=== PATIENT | male | born 1965 | race African-American/Black ===

== ENCOUNTER 2016-09-01 15:00 | Emergency (ER) | payer MEDICAID ==
[~2016-09-01] VITALS: Ht 170.2 cm; Wt 85.3 kg
[~2016-09-01 15:00] MED LIST: AMOXICILLIN500 MG ORAL; NKM
[2016-09-01 15:39] VITALS: BP 120/71
[2016-09-01] MEDS ORDERED: AUGMENTIN 875-1 EAC1 ORAL (15:41)
[2016-09-01] MEDS ORDERED: TdaP Vaccine 0.5ml Syr IM ONE (15:45)
[2016-09-01 15:47] VITALS: BP 120/71
--- NOTE | 2016-09-01 15:49 | Emergency Room Report ---
History of Present Illness General Chief Complaint: Animal Bite Source: Patient Present Illness HPI Patient complains of dog bite to his left hand 2 days ago. States that he was bit by a small domistcated dog that bit his left middle finger. States dog is up -to-date with rabies. States that the area is not red swollen or tender to touch. Pain provoked with palpation and with movement and relieved with rest and ice.Current pain is 3/10. Patient denies any numbness, tingling, pressure, paralysis, cyanosis, bruising, loss of sensation, or loss of range of motion. Allergies: Coded Allergies: No Known Allergies (Unverified , 12/09/15) Patient History Past Medical History: see triage record Pertinent Family History: none Immunizations: other - needs TDAP Reviewed Nursing Documentation: PMH: Agreed, PSxH: Agreed Nursing Documentation-PMH Past Medical History: No Stated History Physical Exam Vital Signs Date Time Temp Pulse Resp B/P Pulse Ox O2 Delivery O2 Flow Rate FiO2 09/01/16 15:33 97.7 74 14 120/71 100 Room Air Sp02 EP Interpretation: reviewed, normal General Appearance: no apparent distress, alert, GCS 15, non-toxic Head: normocephalic, atraumatic ENT: normal ENT inspection Neck: normal inspection Respiratory: chest non-tender, lungs clear, normal breath sounds, speaking full sentences Cardiovascular #1: regular rate, rhythm, no edema, normal capillary refill Cardiovascular #2: 2+ radial (R), 2+ radial (L) Skin: no rash, abrasions - local erythema, swelling, tenderness and crusting present on left 3rd digit Medical Decision Making PA Attestation Dr. Alexandra is my supervising physician with whom patient management has been discussed with. Diagnostic Impression: Primary Impression: Animal bite of right hand with infection Qualified Codes: S61.451A - Open bite of right hand, initial encounter; L08.9 - Local infection of the skin and subcutaneous tissue, unspecified ER Course Pt. presents to the ED c/o dog bite Ddx considered but are not limited to infected dog bite, rabies, cellulitis, laceration, abrasion, contusion Vital signs: are WNL, pt. is afebrile H&PE are most consistent with infected dog bite. ORDERS: none required at this time, the diagnosis is clinical ED INTERVENTIONS: TDap DISCHARGE: At this time pt. is stable for d/c to home. Will provide printed patient care instructions, and any necessary prescriptions. Care plan and follow up instructions have been discussed with the patient prior to discharge. Last Vital Signs Date Time Temp Pulse Resp B/P Pulse Ox O2 Delivery O2 Flow Rate FiO2 09/01/16 15:39 14 120/71 100 Room Air 09/01/16 15:33 97.7 74 Disposition: HOME, SELF-CARE Condition: Stable Scripts Amoxicillin/Potassium Clav 875-125* (AUGMENTIN 875-125 TABLET*) 1 Each Tablet 1 TAB ORAL TWICE A DAY for 7 Days, #14 TAB Prov: DARI GARCIAS 09/01/16 DARI GARCIAS Sep 01, 2016 15:49
== END 2016-09-01 15:54 | disposition home or self-care (01) ==
LOC: EMR 15:38
DX: S61.451A Open bite of right hand, initial encounter (principal); L08.9 Local infection of the skin and subcutaneous tissue, unspecified; Z23 Encounter for immunization; W54.0XXA Bitten by dog, initial encounter; Y92.9 Unspecified place or not applicable; Y99.8 Other external cause status
CPT/HCPCS: 90471; 90715; 99283

== ENCOUNTER 2017-03-13 09:07 | Emergency (ER) | payer MEDICAID ==
[~2017-03-13] VITALS: Ht 167.6 cm; Wt 86.2 kg
[~2017-03-13 09:07] MED LIST changes: +AUGMENTIN 875-1 EAC1 ORAL
[2017-03-13 09:35] VITALS: BP 161/95
[2017-03-13] MEDS ORDERED: BACTRIM DS TAB1 EAC1 ORAL (10:37)
[2017-03-13 10:57] VITALS: BP 132/95
--- NOTE | 2017-03-13 16:22 | Diagnostic Imaging Report ---
Indication: PAIN Technique: 2 views of the left tibia and fibula Comparison: none Findings: No acute fractures. No dislocations. Joint spaces are preserved. No radiopaque foreign body Impression: Negative
--- NOTE | 2017-03-14 23:33 | Emergency Room Report ---
History of Present Illness General Chief Complaint: General Complaint Source: Patient Present Illness HPI [id number] male who presented after increased pain to his rash lower extremity. The patient reported having gradual onset of symptoms. Patient reported having increased pain to his lower legs. He did not take any medications. Patient denied recent trauma. He reported having some pain to the area. Allergies: Coded Allergies: No Known Allergies (Unverified , 12/09/15) Patient History Past Medical History: see triage record Reviewed Nursing Documentation: PMH: Agreed, PSxH: Agreed Nursing Documentation-PMH Past Medical History: No Stated History Review of Systems All Other Systems: negative except mentioned in HPI Physical Exam Vital Signs Date Time Temp Pulse Resp B/P (MAP) Pulse Ox O2 Delivery O2 Flow Rate FiO2 03/13/17 09:25 97.9 66 18 146/96 98 Room Air General Appearance: well appearing, no apparent distress, alert, GCS 15, non- toxic Head: normocephalic, atraumatic ENT: hearing grossly normal, normal voice Neck: full range of motion, supple Respiratory: no respiratory distress, speaking full sentences Musculoskeletal: no calf tenderness, other - left anterior leg small lesion without warmth. Neurologic: normal inspection, alert, oriented x3, normal gait Psychiatric: mood/affect normal Skin: no rash Medical Decision Making Diagnostic Impression: Primary Impression: Erythema nodosum ER Course Patient presented for skin rash. Differential diagnosis included wasn't limited to abscess, contusion, erythema nodosum among others. Patient's benign exam and does not appear to require any further laboratory testing at this time. X-ray imaging of the left leg 2 views read by radiologist no evidence of fracture or soft tissue swelling. The patient is advised to follow up with primary care doctor in 1-2 days. Patient is advised to return if any worsening condition or if any changes in status that are concerning. Last Vital Signs Date Time Temp Pulse Resp B/P (MAP) Pulse Ox O2 Delivery O2 Flow Rate FiO2 03/13/17 10:57 67 16 132/95 100 Room Air 03/13/17 09:25 97.9 Status: improved Disposition: HOME, SELF-CARE Condition: Stable Scripts Trimethoprim/Sulfamethoxazole 160/800* (BACTRIM DS TABLET*) 1 Each Tablet 1 TAB ORAL TWICE A DAY, #20 TAB Prov: Jean Alexandra 03/13/17 Patient Instructions: Erythema Nodosum Jean Alexandra Mar 14, 2017 23:33
== END 2017-03-13 10:57 | disposition home or self-care (01) ==
LOC: EMR 09:41
DX: L52 Erythema nodosum (principal)
CPT/HCPCS: 99283